=== PATIENT | male | born 1960 | race Caucasian/White ===

== ENCOUNTER 2019-11-25 11:44 | Outpatient (CLI) | payer OTHER ==
--- NOTE | 2019-11-25 14:24 | MRI ---
MRI CERVICAL SPINE WITHOUT CONTRAST: History: Cervical radiculopathy. Comparison: None.. Findings: Cerebral tonsils terminate at the foramen magnum. Cord signal is normal. No marrow infiltrative proce ss. No fracture. No malalignment. Modic type II endplate changes on the right at C2-C3. Levels are as follows: C2-C3: Mild disc desiccation. Mild uncinate process hypertrophy. No significant neural foraminal or s ai canal narrowing. C3-C4: Mild degenerative disc space height loss. Broad-based posterior disc osteophyte complex greate st in the right lateral recess and subforaminal zone. Moderate to severe right and mild left neural foraminal narrowing. There is effacement of the ventral CSF space with ventral cord abutment of the s ai canal measuring approximately 7 mm. C4-C5: Mild degenerative disc space height loss at circumferential disc osteophyte complex greatest i n the lateral recesses.. Moderate bilateral neural foraminal narrowing. There is effacement of the ventral CSF space with cord abutment with the spinal canal measuring approximately 7 mm. C5-C6: Advanced degenerative disc space height loss. Circumferential disc osteophyte complex greatest in the right lateral recess and subfrontal zone. Severe right and moderate to severe left neural foraminal narrowing. There is anterior cord abutment with the spinal canal narrowed to approximately 6-7 mm. Mild ligamentum flavum hypertrophy. C6-C7: Mild degenerative disc space height loss. Circumferential disc bulge greatest in the left lat eral recess. Moderate left and mild right neural foraminal narrowing. Spinal canal only minimally narrowed to 1 cm. C7-T1: Normal disc. No neural foraminal or spinal canal narrowing. Impression: Multilevel high-grade neural foraminal and spinal canal narrowing as described. Transcribed Date/Time: 11/25/2019 2:58 PM
--- NOTE | 2019-11-25 14:34 | MRI ---
MR the lumbar spine without contrast: 11/25/2019 History: Chronic low back pain, lumbar radiculopathy COMPARISON: None. TECHNIQUE: Multiplanar multisequence MR images were obtained of lumbar spine without IV contrast FINDINGS: On the basis of 5 lumbar type vertebral bodies, conus medullaris terminates at [id number] level. Sagittal STIR imaging demonstrates no focal area of osseous marrow edema. T12-L1:There is disc space narrowing and disc desiccation with mild bilateral facet hypertrophy. No s ignificant central canal or neural foraminal stenosis. L1-2:Intervertebral disc height and signal intensity appears within normal limits with no significant central canal or neural foraminal stenosis. L2-3:Mild bilateral facet hypertrophy. Intervertebral disc height and signal intensity within normal limits with no significant central canal or neural foraminal stenosis. Partial disc desiccation. L3-4:Mild bilateral facet hypertrophy. Intervertebral disc height and signal intensity grossly unrema rkable. Mild bilateral neural foraminal stenosis. No significant central canal stenosis. L4-5:There is disc space narrowing with disc desiccation and mild disc bulge. Mild bilateral facet hy pertrophy. There is mild bilateral neural foraminal stenosis. No significant central canal stenosis. L5-S1:No significant central canal or neural foraminal stenosis. Mild bilateral facet hypertrophy. Image retroperitoneal structures demonstratenonvisualization of a normal left kidney. There may be a markedly atrophic left kidney on axial image 9 of the T2 sequence. Cholelithiasis is incidentally noted. Partially visualized diverticulosis of the descending colon and sigmoid colon. IMPRESSION: Multilevel relatively mild lumbar spine degenerative change as detailed above. Incidental findings as detailed above.
--- NOTE | 2019-11-25 15:03 | RAD ---
LUMBAR SPINE 2 VIEWS: HISTORY: Low back pain. FINDINGS: Multilevel degenerative changes are seen. No fracture, subluxation, or bony destruction is identifie d. IMPRESSION: Lumbar spondylosis. POS: TPC
== END 2019-11-25 11:45 | disposition home or self-care (01) ==
LOC: SCSMRI 11:44
PROVIDERS: ATTEND Family Medicine
DX: M47.26 Other spondylosis with radiculopathy, lumbar region (principal); M54.12 Radiculopathy, cervical region; M48.02 Spinal stenosis, cervical region; M47.817 Spondylosis without myelopathy or radiculopathy, lumbosacral region
CPT/HCPCS: 72100; 72141; 72148

== ENCOUNTER 2020-01-08 10:15 | Outpatient (CLI) | payer OTHER ==
--- NOTE | 2020-01-08 11:41 | RAD ---
CERVICAL SPINE 4 VIEWS: Date: 01/08/2020 INDICATION: History of neck pain. FINDINGS: Cervical spine in the lateral projection is within normal limits for alignment. No abnormal translati onal motion is evident. There is mild multilevel spondylosis of the cervical spine consisting of mild multilevel disc degenerative disease most pronounced at C3-4. There is mild multilevel facet osteoar thritic change. Prevertebral soft tissues are normal appearing. IMPRESSION: Mild cervical spondylosis. No abnormal translational motion. POS: BH
== END 2020-01-08 10:16 | disposition home or self-care (01) ==
LOC: SCSRAD 10:15
PROVIDERS: ATTEND Neurological Surgery
DX: M50.021 Cervical disc disorder at C4-C5 level with myelopathy (principal); M50.121 Cervical disc disorder at C4-C5 level with radiculopathy; M47.812 Spondylosis without myelopathy or radiculopathy, cervical region
CPT/HCPCS: 72050

== ENCOUNTER 2020-08-26 14:52 | Outpatient (CLI) | payer OTHER | END 2020-08-26 14:53 | disposition home or self-care (01) | LOC: CTENTCT 14:52 | PROVIDERS: ATTEND Otolaryngology Plastic Surgery within the Head & Neck | DX: J32.8 Other chronic sinusitis (principal) | CPT/HCPCS: 70486 ==

== ENCOUNTER 2020-09-13 07:12 | Outpatient (CLI) | payer OTHER ==
[2020-09-14 02:09] LABS: SARS-CoV-2 MS2 Positive; SARS-CoV-2 N Gene Negative; SARS-CoV-2 S Gene Negative; SARS-CoV-2 by NAA Not Detected (NotDetected); SARS-CoV-2 orf1ab Negative
--- NOTE | 2020-09-14 17:35 | EKG ---
Test Reason : Blood Pressure : / mmHG Vent. Rate : 071 BPM Atrial Rate : 071 BPM P-R Int : 152 ms QRS Dur : 122 ms QT Int : 410 ms P-R-T Axes : 053 057 053 degrees QTc Int : 445 ms Normal sinus rhythm Non-specific intra-ventricular conduction delay Borderline ECG Confirmed by Julius HALL ([id number]) on 09/14/2020 5:34:48 PM Referred By: MELI Confirmed By:Julius HALL
== END 2020-09-13 07:13 | disposition home or self-care (01) ==
LOC: LABBT 07:12
PROVIDERS: ATTEND Otolaryngology Plastic Surgery within the Head & Neck
DX: Z01.818 Encounter for other preprocedural examination (principal); J32.8 Other chronic sinusitis; J34.89 Other specified disorders of nose and nasal sinuses; J34.3 Hypertrophy of nasal turbinates; J33.9 Nasal polyp, unspecified; Z20.828 Contact with and (suspected) exposure to other viral communicable diseases
CPT/HCPCS: 87635; 93005; 93010; U0003

== ENCOUNTER 2020-09-15 06:57 | Day surgery (SDC) | payer OTHER ==
[2020-09-13 14:07] VITALS: BMI 27.3
[2020-09-15] MEDS ORDERED: AFRIN NASAL MIST 15 ML BOT ONE ×2 (07:28→08:55)
[2020-09-15] MEDS ORDERED: Bacitracin Zinc Ointment 30 gm TUBE ONE (08:55)
[2020-09-15] MEDS ORDERED: Fentanyl 100 MCG/2 ML VIAL ONE ×2 (09:11→10:35)
[2020-09-15] MEDS ORDERED: Midazolam HCl 2 mg/2 ml Vial ONE (09:11)
[2020-09-15] MEDS ORDERED: Lidocaine 2% w/Epinephrine 1:200K 20 ML VIAL ONE (09:23)
[2020-09-15] MEDS ORDERED: Meperidine HCl/PF 25 MG/ML VIAL ONE (10:54)
[2020-09-15] MEDS ORDERED: PROPOFOL 200 MG/20 ML VIAL ONE (11:39)
[2020-09-15] MEDS ORDERED: Lidocaine 1% PF 5 ML VIAL ONE (11:39)
[2020-09-15] MEDS ORDERED: Glycopyrrolate 0.2 MG/ML 5 ML SYRINGE ONE (11:39)
[2020-09-15] MEDS ORDERED: Ondansetron PF 4 MG/2 ML Vial ONE (11:39)
[2020-09-15] MEDS ORDERED: Dexamethasone 20 MG/5 ML VIAL ONE (11:39)
[2020-09-15] MEDS ORDERED: Rocuronium Bromide 10 MG/ML (10ML VIAL) ONE (11:39)
--- NOTE | 2020-09-16 15:49 | OP ---
DATE OF PROCEDURE: 09/15/2020 PREOPERATIVE DIAGNOSES: 1. Chronic pansinusitis. 2. Bilateral nasal polyposis. 3. Bilateral inferior turbinate hypertrophy. 4. Bilateral nasal valve collapse. 5. Nasal obstruction. POSTOPERATIVE DIAGNOSES: 1. Chronic pansinusitis. 2. Bilateral nasal polyposis. 3. Bilateral inferior turbinate hypertrophy. 4. Bilateral nasal valve collapse. 5. Nasal obstruction. PROCEDURES PERFORMED: 1. Bilateral endoscopic sinus surgery, total ethmoidectomy including sphenoidotomies with removal of tissue. 2. Bilateral endoscopic sinus surgery, maxillary antrostomies with removal of tissue. 3. Bilateral endoscopic sinus surgery, frontal sinusotomies with removal of tissue. 4. Bilateral inferior turbinate submucosal resection. 5. Bilateral repair of nasal valve collapse. 6. [employer] image-guided cranial base navigational surgery. ESTIMATED BLOOD LOSS: 20 mL. COMPLICATIONS: None. ANESTHESIA: GETA. DESCRIPTION OF PROCEDURE: The patient was taken to the operating room and placed supine on the table. General endotracheal anesthesia was obtained by the anesthesia staff. Tube was secured in the left lower lip and the patient was placed in a beach-chair position. Following this, the Afrin pledgets were placed in the nasal cavity and the [employer] image-guided system was set up and calibrated was noted to be within 0.1 mm of accuracy. Following this, Afrin pledgets removed and 1% lidocaine with 1:100,000 epinephrine was injected into the inferior turbinates, middle turbinates, and lateral nasal wall bilaterally. Following this, the middle turbinates were gently medialized using a [place] elevator and the uncinate process was visualized. The uncinate process was then anteriorly fractured using a ball-ended probe and then was removed using the 0-degree microdebrider and up-biting [place] forceps bilaterally. Following this, the maxillary sinus ostia was identified using the 40-degree microdebrider blade under image guidance and was widened using the microdebrider. Nasal polyps were removed from the maxillary sinuses bilaterally as the maxillary sinus ostia was widened. Following this, the ethmoidal bulla was identified and was punctured on its medial and inferior aspect using the 0-degree microdebrider bilaterally. The ethmoidal bulla was removed using the microdebrider. Nasal polyps were encountered throughout the anterior and posterior ethmoidal cells. Following this, the grand lamella was identified using the 0-degree microdebrider and was punctured into the posterior ethmoidal cells. Working from posterior to anterior, the ethmoidal cells were opened using the 0-degree microdebrider. Nasal polyps were removed throughout the ethmoidal sinuses bilaterally. Following this, the anterior wall of the sphenoid sinus was identified using the image-guided system and a 0-degree microdebrider was used to puncture a sphenoidotomy into the sphenoid sinus bilaterally. The sphenoidotomy was then widened in a medial and inferior direction using the 0-degree microdebrider bilaterally. Nasal polyps were removed from the sphenoid sinuses bilaterally as well. Following this, a 45-degree endoscope along with a 40-degree microdebrider blade under image-guided surveillance was used to identify the frontal sinus ostia and widened the frontal sinus ostia bilaterally. Nasal polyps were removed from the frontal recess and frontal sinus bilaterally. Following this, the inferior turbinates were then punctured on the anterior inferior aspect and submucosal resection was performed of the anterior and inferior portions of the inferior turbinates bilaterally. Following this, the approach to the lateral nasal wall was made through a small incision and dissection was carried below the lower lateral cartilages and extended into the subperiosteal the lateral nasal bones bilaterally. A graft implant was positioned supporting the lower lateral cartilages and correcting the dynamic valve collapse bilaterally. An incision was then closed using a 6-0 chromic gut stitch. Following this, the nasal cavity was irrigated. NasoPore packing was placed within the middle meatus. The patient tolerated the procedure well. Job ID: [id number]
== END 2020-09-15 12:01 | disposition home or self-care (01) ==
LOC: SDC 06:57
PROVIDERS: ATTEND Otolaryngology Plastic Surgery within the Head & Neck
PROC: 099Q8ZZ Drainage of Right Maxillary Sinus, Via Natural or Artificial Opening Endoscopic (ICD-10-PCS; principal; 2020-09-15)
PROC: 8E09XBZ Computer Assisted Procedure of Head and Neck Region (ICD-10-PCS; principal; 2020-09-15)
PROC: 099W8ZZ Drainage of Right Sphenoid Sinus, Via Natural or Artificial Opening Endoscopic (ICD-10-PCS; principal; 2020-09-15)
PROC: 099R8ZZ Drainage of Left Maxillary Sinus, Via Natural or Artificial Opening Endoscopic (ICD-10-PCS; principal; 2020-09-15)
PROC: 09BV8ZZ Excision of Left Ethmoid Sinus, Via Natural or Artificial Opening Endoscopic (ICD-10-PCS; principal; 2020-09-15)
PROC: 09BL8ZZ Excision of Nasal Turbinate, Via Natural or Artificial Opening Endoscopic (ICD-10-PCS; principal; 2020-09-15)
PROC: 09BU8ZZ Excision of Right Ethmoid Sinus, Via Natural or Artificial Opening Endoscopic (ICD-10-PCS; principal; 2020-09-15)
PROC: 09BS8ZZ Excision of Right Frontal Sinus, Via Natural or Artificial Opening Endoscopic (ICD-10-PCS; principal; 2020-09-15)
PROC: 099X8ZZ Drainage of Left Sphenoid Sinus, Via Natural or Artificial Opening Endoscopic (ICD-10-PCS; principal; 2020-09-15)
PROC: 09BT8ZZ Excision of Left Frontal Sinus, Via Natural or Artificial Opening Endoscopic (ICD-10-PCS; principal; 2020-09-15)
DX: J32.4 Chronic pansinusitis (principal); J34.89 Other specified disorders of nose and nasal sinuses; J34.3 Hypertrophy of nasal turbinates; J33.9 Nasal polyp, unspecified; J30.1 Allergic rhinitis due to pollen; J30.81 Allergic rhinitis due to animal (cat) (dog) hair and dander; M19.90 Unspecified osteoarthritis, unspecified site; Z87.891 Personal history of nicotine dependence
CPT/HCPCS: J1100; J2175; J2250; J2405; J2704; J3010